=== PATIENT | male | born 1965 | race African-American/Black ===

== ENCOUNTER 2022-04-05 14:39 | Emergency (ER) | payer MEDICAID, OTHER ==
[~2022-04-05] VITALS: Ht 170.2 cm; Wt 97.5 kg
--- NOTE | 2022-04-05 14:43 | NUR ---
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 PLACED ON BED, AAOX4, NOT IN DISTRESS- BREATHING SPONTANEOUSLY SATURATING AT 98% RA.
--- NOTE | 2022-04-05 14:50 | NUR ---
AT BED SIDE
--- NOTE | 2022-04-05 15:25 | NUR ---
PATIENT REFUSED BLOOD WORKS AND IVFLUIDS. DR RUVALCBAA IS AWARE
[2022-04-05] MEDS ORDERED: IV NS 0.9% 1,000 ML BAG IV ONE (15:30)
--- NOTE | 2022-04-05 16:20 | NUR ---
PATIENT SIGNED AMA DR RUVALCABA AWARE
[2022-04-05 16:27] VITALS: BP 141/80
== END 2022-04-05 16:25 | disposition left against medical advice (07) ==
LOC: ER 14:42
DX: R42 Dizziness and giddiness (principal); I10 Essential (primary) hypertension; F41.9 Anxiety disorder, unspecified; F12.90 Cannabis use, unspecified, uncomplicated; Z60.2 Problems related to living alone
CPT/HCPCS: 71045-TC

== ENCOUNTER 2022-04-05 17:08 | Emergency (ER) | payer MEDICAID, OTHER ==
[~2022-04-05] VITALS: Ht 170.2 cm; Wt 97.1 kg
--- NOTE | 2022-04-05 17:23 | NUR ---
BIBSELF c/o dizziness left AMA and came back for same reason. AMBULATORY, AAOX4.
--- NOTE | 2022-04-05 17:35 | NUR ---
AT BED SIDE
--- NOTE | 2022-04-05 17:53 | NUR ---
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
[2022-04-05 18:28] LABS: BASOPHILS # (AUTO) 0.1 K/uL (0.0-0.2); BASOPHILS % (AUTO) 1.1 % (0.0-2.0); EOSINOPHILS % (AUTO) 1.5 % (0.0-6.0); HEMATOCRIT 40 % (39-51); LYMPHOCYTES # (AUTO) 2.5 K/uL (0.8-4.8); LYMPHOCYTES % (AUTO) 32.5 % (20.0-44.0); MEAN CORPUSCULAR HGB CONC 33 g/dl (31.0-36.0); MEAN CORPUSCULAR VOLUME 89 fL (80-96); MONOCYTES # (AUTO) 0.5 K/uL (0.1-1.30); NEUTROPHILS # (AUTO) 4.5 K/uL (1.8-8.9); NEUTROPHILS % (AUTO) 58.9 % (43.0-81.0); PLATELET COUNT (AUTO) 342 K/uL (150-450); RED BLOOD CELL COUNT(AUTO) 4.46 MIL/uL (4.5-6.0); WHITE BLOOD COUNT (AUTO) 7.6 K/uL (4.3-11.0)
[2022-04-05 18:32] LABS: CALCIUM, SERUM 8.8 mg/dL (8.5-10.1); CARBON DIOXIDE 30 mmol/L (21-32); CHLORIDE 100 mmol/L (98-107); CREATININE 1.3 mg/dL (0.6-1.3); GLUCOSE 91 mg/dL (74-106); POTASSIUM 3.8 mmol/L (3.5-5.1); SODIUM SERUM 135 mmol/L (136-145); UREA NITROGEN, BLOOD 14 mg/dL (7-18)
[2022-04-05] MEDS ORDERED: IV NS 0.9% 0 ML IV ONE (19:08)
[2022-04-05] MEDS ORDERED: IOHEXOL-350 100 ML VIAL IV ONE (19:08)
[2022-04-05] MEDS ORDERED: CT SWABBABLE VALVE TRANS SET 1 EA INFUS.SET MC ONE (19:08)
--- NOTE | 2022-04-05 19:30 | NUR ---
PATIENT REFUSING CT ANGIO, REFUSING IV LINE. PT TEACHING OF RISK AND BENEFITS X 2.
--- NOTE | 2022-04-05 19:40 | NUR ---
PT STATED HE NO LONGER FEELS DIZZY. PT STILL REFUSING CT SCAN.
--- NOTE | 2022-04-05 19:52 | NUR ---
Patient does not wish to proceed with medical care recommended by Dr. Mckeon. Patient given information related to possible complications, up to and including , which could occur as a result of leaving the hospital at this time. Patient verbalizes understanding of risks involved due to leaving against medical advice. Patient has signed AMA form.
[2022-04-05 21:43] VITALS: BP 135/88
== END 2022-04-05 21:43 | disposition left against medical advice (07) ==
LOC: ER 17:11
DX: R42 Dizziness and giddiness (principal); I10 Essential (primary) hypertension; F41.9 Anxiety disorder, unspecified; F17.200 Nicotine dependence, unspecified, uncomplicated; Z60.2 Problems related to living alone
CPT/HCPCS: 36415; 80048-TC; 83735-TC; 84484-TC; 85025-TC; 85378-TC; J7050; Q9967